=== PATIENT | male | born 1965 | race Two or more races ===

== ENCOUNTER → 2018-03-13 | Outpatient (REF) | payer BC | LOC: M SMT 17:12 | DX: N49.2 Inflammatory disorders of scrotum (principal) | CPT/HCPCS: 87205 ==

== ENCOUNTER → 2024-03-11 | Outpatient (REF) | payer BC, OTHER ==
[~2024-03-11] MED LIST: AUGM875T28 PO; CIPR-249 PO; CIPR-303 PO; FLAG250T PO; METO50TA7 PO; MYLI40DR PO; TYLE325T5 PO
[2024-03-11 14:46] LABS: ALBUMIN 4.4 G/DL (3.2-5.2); ALKALINE PHOSPHATASE 61 U/L (46-116); ALT/SGPT 39 U/L (7.0-40); AST/SGOT 20 U/L (<34); BLOOD UREA NITROGEN 12 MG/DL (9-23); CALCIUM LEVEL 10.8 MG/DL (8.5-10.1); CARBON DIOXIDE LEVEL 29 MMOL/L (20-31); CHLORIDE LEVEL 99 MMOL/L (98-107); CHOLESTEROL LEVEL 203 MG/DL (<200); CHOLESTEROL RISK RATIO 3.69 (<5); CREATININE FOR GFR 1.11 MG/DL (0.70-1.30); GLOMERULAR FILTRATION RATE > 60.0 (>56); GLUCOSE, FASTING 92 MG/DL (60-100); HDL CHOLESTEROL 54.9 MG/DL (>40); HEMATOCRIT 53.4 % (42.0-52.0); HEMOGLOBIN 18.5 g/dl (13.5-17.5); LDL CHOLESTEROL 118.7 MG/DL (<100); MEAN CORPUSCULAR HEMOGLOBIN 32.6 pg (27.0-33.0); MEAN CORPUSCULAR HGB CONC 34.6 g/dl (32.0-36.5); MEAN CORPUSCULAR VOLUME 94.2 fl (80.0-96.0); NON-HDL-C 148.1 MG/DL; PLATELET COUNT, AUTOMATED 253 10^3/uL (150-450); POTASSIUM SERUM 3.9 MMOL/L (3.5-5.1); RED BLOOD COUNT 5.67 10^6/uL (4.30-6.10); SODIUM LEVEL 135 MMOL/L (136-145); TOTAL PROTEIN 7.5 G/DL (5.7-8.2); TRIGLYCERIDES LEVEL 147 MG/DL (<150); WHITE BLOOD COUNT 4.6 10^3/uL (4.0-10.0)
[2024-03-11 14:49] LABS: URIC ACID 9.7 MG/DL (3.7-9.2)
== END ==
LOC: M LAB REF 12:36
PROVIDERS: ATTEND Physician Assistant
DX: I10 Essential (primary) hypertension (principal); M10.071 Idiopathic gout, right ankle and foot